=== PATIENT | male | born 1990 | race American Indian/Alaskan Native ===

== ENCOUNTER 2017-03-31 01:31 | Emergency (ER) | payer SELFPAY ==
[2017-03-31] MEDS ORDERED: Alum-Mag Hydrox-Simethicone Susp (30 mL) PO STA (02:08)
--- NOTE | 2017-03-31 02:09 | C.PDOC ---
History Of Present Illness 26 year old male who presents to the ER with a complaint of nausea, vomiting, and diarrhea for the past 3 hours. Patient states he ate at a diner at 12:00 with his girlfriend who has the same symptoms. Denies fever or chills. Time Seen by Provider: 03/31/17 02:05 Chief Complaint (Nursing): Abdominal Pain History Per: Patient History/Exam Limitations: no limitations Onset/Duration Of Symptoms: Hrs (3) Current Symptoms Are (Timing): Still Present Context: Food Associated Symptoms: Nausea, Vomiting, Diarrhea. denies: Fever, Chills Exacerbating Factors: None Alleviating Factors: None Recent travel outside of the [place]: No Past Medical History Reviewed: Historical Data, Nursing Documentation, Vital Signs Vital Signs: Last Vital Signs Temp 98.7 F 03/31/17 02:26 Pulse 96 H 03/31/17 02:26 Resp 18 03/31/17 02:26 BP 147/76 03/31/17 02:26 Pulse Ox 98 03/31/17 02:26 - Medical History PMH: No Chronic Diseases Surgical History: No Surg Hx Family History: States: Unknown Family Hx - Social History Hx Alcohol Use: No Hx Substance Use: No - Immunization History Hx Tetanus Toxoid Vaccination: Yes Hx Influenza Vaccination: Yes Hx Pneumococcal Vaccination: Yes Review Of Systems Constitutional: Negative for: Fever, Chills Gastrointestinal: Positive for: Nausea, Vomiting, Diarrhea Physical Exam - Physical Exam Appears: Non-toxic, No Acute Distress Skin: Normal Color, Warm, Dry Head: Atraumatic, Normacephalic Oral Mucosa: Moist Chest: Symmetrical, No Tenderness Cardiovascular: Rhythm Regular, No Murmur Respiratory: Normal Breath Sounds, No Rales, No Rhonchi, No Wheezing Gastrointestinal/Abdominal: Soft, No Tenderness Neurological/Psych: Oriented x3, Normal Speech, Normal Cognition ED Course And Treatment O2 Sat by Pulse Oximetry: 96 (Room air) Pulse Ox Interpretation: Normal Progress Note: Maalox and zofran administered. Medical Decision Making Medical Decision Making: probable food-born illness from diner food @ 12N today benign belly girlfriend with same. Agrees to PO treatment and quick d/c Disposition Doctor Will See Patient In The: Office Counseled Patient/Family Regarding: Studies Performed, Diagnosis - Disposition Referrals: [facility] [Outside] [facility] [Outside] Disposition: HOME/ ROUTINE Disposition Time: 02:09 Condition: GOOD Additional Instructions: Gatorade BRAT diet: bananas, white rice, applsauce, toast Zofran ODT (for nausea) 1 tab every 6-8 hours as needed follow-up in our Clinic as needed. Prescriptions: Ondansetron ODT [Zofran ODT] 4 mg PO Q8H PRN #6 odt PRN Reason: Nausea/Vomiting Instructions: Acute Nausea and Vomiting (ED), Food Poisoning (ED) - Clinical Impression Clinical Impression: Gastroenteritis - Scribe Statement The provider has reviewed the documentation as recorded by the Scribe Osmany Morgan All medical record entries made by the Celenaibadriel were at my direction and personally dictated by me. I have reviewed the chart and agree that the record accurately reflects my personal performance of the history, physical exam, medical decision making, and the department course for this patient. I have also personally directed, reviewed, and agree with the discharge instructions and disposition.
[2017-03-31] MEDS ORDERED: Alum-Mag Hydrox-Simethicone Susp (30 mL) ONE (02:15)
[2017-03-31 02:30] VITALS: BP 147/76; PULSE 96; RESP 18; TEMP 98.7
[2017-03-31 03:41] VITALS: O2SAT 96
== END 2017-03-31 02:30 | disposition home or self-care (01) ==
LOC: EDBD 01:31 → C.ER 01:31
DX: K52.9 Noninfective gastroenteritis and colitis, unspecified (principal)